=== PATIENT | female | born 1975 | race African-American/Black ===

== ENCOUNTER 2020-07-21 18:30 | Emergency (ER) | payer BC ==
[~2020-07-21] VITALS: Ht 157.5 cm; Wt 121.4 kg
[2020-07-21 18:34] VITALS: TEMP 97.8
[2020-07-21 19:54] LABS: BASO % 0.6 % (0.0-2.0); EOS % 0.3 % (0-4.0); GRAN # 4.1 (1.4-6.5); GRAN % 57.1 % (42.2-75.2); HEMOGLOBIN 10.3 g/dl (12.5-16.0); LYMPH # 2.5 (1.2-3.4); LYMPH % 34.9 % (20.0-51.0); MEAN CELL VOLUME 71 fl (80.0-100.0); MEAN CORPUSCULAR HEMOGLOBIN 21 pg (27.0-31.0); MEAN CORPUSCULAR HGB CONC 30 g/dl (33.0-37.0); MEAN PLATELET VOLUME 9.8 fl (7.4-10.4); MONO # 0.5 (0.1-0.6); MONO % 6.8 % (1.7-9.3); PLATELET COUNT 352 K/mm3 (130-400); RED BLOOD COUNT 4.93 M/mm3 (4.10-5.30); REDCELL DISTRIBUTION WIDTH-CV 16.7 % (11.5-14.5)
[2020-07-21 19:57] LABS: HEMATOCRIT 34.9 % (37.0-47.0)
[2020-07-21 20:23] LABS: ALANINE AMINOTRANSFERASE 15 U/L (4-34); ALBUMIN 4.2 gm/dL (3.5-5.0); ALKALINE PHOSPHATASE 95 U/L (50-136); ANION GAP 7 mmol/L (7-16); AST,SGOT 19 U/L (15-37); BILIRUBIN,TOTAL 0.3 mg/dL (0.0-1.0); BLOOD UREA NITROGEN 12 mg/dL (7-17); CALCIUM 8.8 mg/dL (8.4-10.2); CARBON DIOXIDE 29 mmol/L (22-30); CHLORIDE 100 mmol/L (98-107); CREATININE, serum 0.65 (0.52-1.25); GLUCOSE 155 mg/dL (74-106); LIPASE 57 U/L (23-300); POTASSIUM 3.7 mmol/L (3.4-5.0); SODIUM 136 mmol/L (137-145); TOTAL PROTEIN 7.8 gm/dL (6.4-8.2)
[2020-07-21 20:34] LABS: INR 1.3 (0.8-3.0)
[2020-07-21 20:36] LABS: PARTIAL THROMBOPLASTIN TIME 33.9 SECONDS (26.0-37.0)
[2020-07-21 20:38] LABS: TROPONIN-I < 0.012 ng/mL (0.000-0.035)
[2020-07-21 20:41] LABS: D-DIMER < 200.00 ng/mLDDu (200-230)
[2020-07-21] MEDS ORDERED: FIORICET 325 MG1 TA1 PO (23:35)
[2020-07-21] MEDS ORDERED: VENTOLIN0.09 MG IH (23:36)
[2020-07-21 23:58] VITALS: BP 142/90; PULSE 74
== END 2020-07-22 00:03 | disposition home or self-care (01) ==
LOC: COL.ER 18:30
PROVIDERS: Emergency Medicine
DX: R06.00 Dyspnea, unspecified (principal); R51.9 Headache, unspecified; Z86.16 Personal history of COVID-19; Z90.49 Acquired absence of other specified parts of digestive tract; Z88.0 Allergy status to penicillin
CPT/HCPCS: J1885; J7030